=== PATIENT | male | born 1960 | race American Indian/Alaskan Native ===

== ENCOUNTER 2020-01-08 14:12 | Emergency (ER) | payer MEDICAID ==
[2020-01-08 15:07] LABS: Hemoglobin 13.1 gm/dl (11.8-15.2); Mean Corpuscular HGB Conc 33 % (32-34); Mean Corpuscular Volume 74 fl (84-94); Platelet Count 221 K/mm3 (140-440); Red Blood Count 5.39 M/mm3 (3.65-5.03); Red Cell Distribution Width 17.6 % (13.2-15.2)
[2020-01-08 15:16] LABS: Amphetamine Screen,Urine PRESUMPTIVE NEGATIVE; Benzodiazepines Screen,Urine PRESUMPTIVE NEGATIVE; Cocaine Screen,Urine PRESUMPTIVE NEGATIVE; Methadone Screen,Urine PRESUMPTIVE NEGATIVE; Opiate Screen,Urine PRESUMPTIVE NEGATIVE
[2020-01-08 15:25] LABS: INR 0.92 (0.87-1.13)
[2020-01-08 15:26] LABS: Partial Thromboplastin Time 28.2 Sec. (24.2-36.6)
[2020-01-08 15:27] LABS: Cannabinoid Screen,Urine PRESUMPTIVE POSITIVE
[2020-01-08 15:35] LABS: BUN/Creatinine Ratio 22; Blood Urea Nitrogen 13 mg/dL (9-20); Calcium 8.7 mg/dL (8.4-10.2); Hemolysis Index 129
[2020-01-08 15:37] LABS: Creatine Kinase MB 14.6 ng/mL (0.0-4.0)
[2020-01-08 15:39] LABS: Alanine Aminotransferase 18 units/L (7-56); Albumin 4.6 g/dL (3.9-5)
[2020-01-08 15:41] LABS: Bilirubin,Direct < 0.2 mg/dL (0-0.2)
--- NOTE | 2020-01-08 15:42 | Cat Scan Report ---
CT head/brain wo con INDICATION / CLINICAL INFORMATION: 59 years Male; MAIN: MADIET, DAVIS. TECHNIQUE: Routine CT head without contrast. All CT scans at this location are performed using CT dos e reduction for ALARA by means of automated exposure control. COMPARISON: None. FINDINGS: BRAIN / INTRACRANIAL CONTENTS: The motion degrades image quality. However, there appears be mild cere bral white matter disease most consistent with microvascular angiopathy. The ventricular system is wi thin normal limits in size and configuration. There are small foci of calcification within the basal ganglia. However, there is no CT evidence of acute intracranial hemorrhage or significant mass effect . The findings also appear most consistent with foci of calcification along the anterior falx. ORBITS: No significant abnormality of visualized orbits. SINUSES / MASTOIDS: No significant abnormality the visualized paranasal sinuses or mastoid air cells. CRANIOCERVICAL JUNCTION: No significant abnormality. ADDITIONAL FINDINGS: None. IMPRESSION: 1. This mild microvascular angiopathy without CT evidence of acute intracranial hemorrhage. Signer Name: Laith Hobbs MD Signed: 01/08/2020 3:37 PM Workstation Name: [id number]
--- NOTE | 2020-01-08 16:16 | Cat Scan Report ---
Exam: CT cervical spine History: MAIN: [facility] ; Technique: Contiguous thin cut axial images obtained through the cervical spine. Sagittal and jett l reconstructions performed by the technologist. All CT scans at this location are performed using CT dose reduction for ALARA by means of automated exposure control. Findings: No priors. There is no evidence of fracture or traumatic subluxation. No vertebral compression fracture is seen; prevertebral space is normal. No fracture involving the bony canal in the cervical spine. Vertebral bodies are normal in height and alignment. Disc space is narrowed at C3-C4 disc level. Broad-based shallow bony spur is seen. Left neuroforamen is narrowed. At C4-C5 disc level, nonlateralizing shallow disc protrusion is seen towards the left side. At C5-C6 disc level, broad-based bony spur is seen. Left neural foramen is narrowed. At C6-C7 disc level, bulging disc is seen. No significant degenerative change seen in the uncinate or facet joints. Surrounding soft tissues are grossly normal. Impression: No signs of acute bony trauma to the cervical spine. Signer Name: Stewart Syed MD Signed: 01/08/2020 4:12 PM Workstation Name: [id number]
--- NOTE | 2020-01-08 16:31 | XRay Report ---
CHEST 1 VIEW 01/08/2020 3:25 PM INDICATION / CLINICAL INFORMATION: hypertension. COMPARISON: None available. FINDINGS: SUPPORT DEVICES: None. HEART / MEDIASTINUM: Heart is upper normal size for AP portable technique. Calcified lymph nodes in t he right hilum likely representing old granulomatous disease. LUNGS / PLEURA: No significant pulmonary or pleural abnormality. No pneumothorax. ADDITIONAL FINDINGS: Old, healed right rib fractures. IMPRESSION: 1. No acute findings. Signer Name: Kiley Mills MD Signed: 01/08/2020 4:27 PM Workstation Name: [id number]
--- NOTE | 2020-01-08 16:54 | Emergency Department Report ---
ED General Adult HPI - General Chief complaint: Altered Mental Status Stated complaint: ETOH/AMS Time Seen by Provider: 01/08/20 14:43 Source: EMS Mode of arrival: Stretcher Limitations: Altered Mental Status - History of Present Illness Initial comments: 59-year-old male who admits to excessive alcohol consumption. Apparently he was altered and combative and his outside situation situation. EMS was summoned [place] a gas station where they found the patient lying in a "pool of vomit". He was transported to this facility. According to the triage note "upon EMS arrival, patient attempting to ambulate and fell, hitting face." Patient really has no active complaint on my encounter. He does state that he chipped his frontal incisor area. He denies neck pain. He denies headache. He does not tell me specifically whether or not he hit his head. He has no other complaint of injury. -: unknown Severity scale (0 -10): 0 Associated Symptoms: denies other symptoms - Related Data Home Medications Medication Instructions Recorded Confirmed Last Taken No Known Home Medications [No 01/08/20 01/08/20 Unknown Reported Home Medications] Allergies Allergy/AdvReac Type Severity Reaction Status Date / Time No Known Allergies Allergy Unverified 01/08/20 14:24 ED Review of Systems ROS: Stated complaint: ETOH/AMS Other details as noted in HPI Comment: Unobtainable due to pts medical conditions ED Past Medical Hx - Past Medical History Previous Medical History?: No - Surgical History Past Surgical History?: No - Social History Smoking Status: Current Every Day Smoker Substance Use Type: Alcohol - Medications Home Medications: Home Medications Medication Instructions Recorded Confirmed Last Taken Type No Known Home Medications [No 01/08/20 01/08/20 Unknown History Reported Home Medications] ED Physical Exam - General Limitations: Altered Mental Status (Somewhat inebriated) General appearance: alert, in no apparent distress - Head Head exam: Present: atraumatic, normocephalic - Eye Eye exam: Present: normal appearance, PERRL, EOMI. Absent: scleral icterus - ENT ENT exam: Present: mucous membranes moist, other (Mild chipped frontal incisor no loose dentition, no facial deformity) - Neck Neck exam: Present: normal inspection. Absent: tenderness, meningismus - Respiratory Respiratory exam: Present: normal lung sounds bilaterally. Absent: respiratory distress - Cardiovascular Cardiovascular Exam: Present: regular rate, normal rhythm. Absent: systolic murmur, diastolic murmur, rubs, gallop - GI/Abdominal GI/Abdominal exam: Present: soft, normal bowel sounds. Absent: distended, tenderness, guarding, rebound, rigid - Rectal Rectal exam: Present: deferred - Extremities Exam Extremities exam: Present: normal inspection. Absent: tenderness, calf tenderness - Back Exam Back exam: Present: normal inspection. Absent: CVA tenderness (R), CVA tenderness (L), muscle spasm, paraspinal tenderness, vertebral tenderness - Neurological Exam Neurological exam: Present: alert, oriented X3, CN II-XII intact. Absent: motor sensory deficit - Psychiatric Psychiatric exam: Present: normal affect, normal mood - Skin Skin exam: Present: warm, dry, intact, normal color. Absent: rash ED Course Vital Signs 01/08/20 14:40 Temperature 98.7 F Pulse Rate 62 Respiratory 16 Rate Blood Pressure 120/69 [Left] O2 Sat by Pulse 98 Oximetry - Reevaluation(s) Reevaluation #1: Patient has no supplemental issues. He is waiting on sobriety. He will be discharged ultimately. 01/08/20 17:15 ED Medical Decision Making - Lab Data Result diagrams: 01/08/20 14:43 01/08/20 14:43 Laboratory Results - last 24 hr 01/08/20 01/08/20 01/08/20 14:33 14:43 14:43 WBC 5.0 RBC 5.39 H Hgb 13.1 Hct 40.0 MCV 74 L MCH 24 L MCHC 33 RDW 17.6 H Plt Count 221 PT INR APTT Sodium 145 Potassium 4.7 Chloride 106.1 Carbon Dioxide 20 L Anion Gap 24 BUN 13 Creatinine 0.6 L Estimated GFR > 60 BUN/Creatinine Ratio 22 Glucose 112 H Calcium 8.7 Magnesium Total Bilirubin Direct Bilirubin Indirect Bilirubin AST ALT Alkaline Phosphatase Total Creatine Kinase CK-MB (CK-2) CK-MB (CK-2) Rel Index Troponin T NT-Pro-B Natriuret Pep Total Protein Albumin Albumin/Globulin Ratio Urine Opiates Screen Presumptive negative Urine Methadone Screen Presumptive negative Ur Barbiturates Screen Presumptive negative Ur Phencyclidine Scrn Presumptive negative Ur Amphetamines Screen Presumptive negative U Benzodiazepines Scrn Presumptive negative Urine Cocaine Screen Presumptive negative U Marijuana (THC) Screen Presumptive positive Drugs of Abuse Note Disclamer Plasma/Serum Alcohol 01/08/20 01/08/20 01/08/20 14:43 14:44 14:44 WBC RBC Hgb Hct MCV MCH MCHC RDW Plt Count PT 12.5 INR 0.92 APTT 28.2 Sodium Potassium Chloride Carbon Dioxide Anion Gap BUN Creatinine Estimated GFR BUN/Creatinine Ratio Glucose Calcium Magnesium 2.20 Total Bilirubin 0.20 Direct Bilirubin < 0.2 Indirect Bilirubin 0.0 AST 33 ALT 18 Alkaline Phosphatase 113 Total Creatine Kinase 467 H CK-MB (CK-2) 14.6 H CK-MB (CK-2) Rel Index 3.1 Troponin T < 0.010 NT-Pro-B Natriuret Pep 56.90 Total Protein 8.6 H Albumin 4.6 Albumin/Globulin Ratio 1.2 Urine Opiates Screen Urine Methadone Screen Ur Barbiturates Screen Ur Phencyclidine Scrn Ur Amphetamines Screen U Benzodiazepines Scrn Urine Cocaine Screen U Marijuana (THC) Screen Drugs of Abuse Note Plasma/Serum Alcohol 0.31 H - EKG Data -: EKG Interpreted by Me EKG shows normal: sinus rhythm, axis, intervals, QRS complexes, ST-T waves Rate: normal - EKG Data Interpretation: no acute changes Critical care attestation.: If time is entered above; I have spent that time in minutes in the direct care of this critically ill patient, excluding procedure time. ED Disposition Clinical Impression: Alcohol intoxication Qualifiers: Complication of substance-induced condition: with delirium Qualified Code(s): F10.921 - Alcohol use, unspecified with intoxication delirium Disposition: DC-01 TO HOME OR SELFCARE Is pt being admited?: No Does the pt Need Aspirin: No Condition: Stable Instructions: Abuse of Alcohol (ED) Additional Instructions: Return to the emergency department any acute change or problem Referrals: ABILIO LR MD [Primary Care Provider] - 3-5 Days [facility] [Outside] - 3-5 Days [facility] [Outside] - 3-5 Days [facility] [Provider Group] - 3-5 Days Time of Disposition: 17:15
[2020-01-08] MEDS ORDERED: THIAMINE 100 MG, FOLIC ACID 1 MG, MULTIPLE VITAMIN INJ, ADULT 10 ML in SODIUM CHLORIDE ... IV ONE (16:55)
[2020-01-09 03:57] VITALS: BP 119/72
== END 2020-01-09 04:30 | disposition home or self-care (01) ==
LOC: ED 14:12
DX: F10.129 Alcohol abuse with intoxication, unspecified (principal); F17.200 Nicotine dependence, unspecified, uncomplicated
CPT/HCPCS: 36415; 70450; 71045; 72125; 80048; 80076; 80307; 82550; 82553; 83735; 83880; 84484; 85027; 85610; 85730; 93005; 93010; 96365; 96366; 99284; J3411; J7030; 80320; G0480